=== PATIENT | female | born 1990 | race Caucasian/White ===

== ENCOUNTER 2017-07-07 08:13 | Observation (INO) | payer SELFPAY ==
[2017-07-07 09:32] LABS: Bilirubin NEGATIVE (NEGATIVE); Blood 50 Ery/ul (0-5); COMPLETE URINE MICROSCOPIC? YES; Collection Type CLEAN CATCH; Glucose NEGATIVE (NEGATIVE); Leukocyte Esterase 2+ (NEGATIVE)
[2017-07-07 09:39] LABS: Bacteria PACKED /HPF (NEGATIVE); Epithelial Cells FEW /HPF (FEW); Mucus SLIGHT /HPF (NEGATIVE)
[2017-07-07] MEDS ORDERED: Lactated Ringers 1,000 ML IV ONE (10:29)
[2017-07-07 11:00] LABS: BASOPHIL % 0.1 % (0.0-0.4); Eosinophil % 3.6 % (0.00-5.0); Granulocytes % 83.6 % (36.0-66.0); Lymphocytes % 8.6 % (24.0-44.0); Mean Cell Volume 94.3 fl (78-100); Mean Platelet Volume 10.6 fl (6-9.5); Monocytes % 4.1 % (0.0-12.0); Platelet Count 194 K/mm3 (150-450); Red Blood Count 3.68 M/mm3 (4.1-5.4); Red Cell Distribution Width 13.6 % (11.5-14.0); White Blood Count 12.6 K/mm3 (4.0-10.5)
[2017-07-07 11:02] LABS: Mean Corpuscular Hemoglobin 31.7 pg (26-32)
[2017-07-07 11:28] LABS: ALBUMIN 3.2 g/dL (3.4-5.0); ALKALINE PHOSPHATASE 66 U/L (46-116); ANION GAP 15.1 MEQ/L (5-15); BLOOD UREA NITROGEN 5 mg/dL (9-20); CHLORIDE 104 mEq/L (98-107); Carbon Dioxide 23.1 mEq/L (21-32); Glucose 89 MG/DL (70-110); Potassium 3.5 mEq/L (3.5-5.1); SGOT/AST 13 U/L (15-37); SGPT/ALT 11 U/L (12-78); SODIUM 139 mEq/L (136-145); Total Protein 6.7 gm/dL (6.4-8.2)
[2017-07-07 14:11] VITALS: BP 120/71; PULSE 100
== END 2017-07-07 14:30 | disposition home or self-care (01) ==
LOC: OB 08:13
PROVIDERS: ADMIT Family Medicine; ATTEND Family Medicine
DX: Z34.82 Encounter for supervision of other normal pregnancy, second trimester (principal)
CPT/HCPCS: 36415; 80053; 80307; 81000; 85025; G0378